=== PATIENT | female | born 1935 | race Caucasian/White ===

== ENCOUNTER 2018-11-02 19:15 | Inpatient (IN) ==
[2018-11-02 20:50] LABS: BASO# 0.05 X1000 (0.0-0.2); BASO% 0.8 % (0.0-0.8); HEMATOCRIT 43.7 % (37.0-47.0); HEMOGLOBIN 15.1 g/dL (12.0-16.0); LYMPH# 0.82 X1000 (1.2-3.4); MCH 30.6 PG (27-31); MCHC 34.6 g/dL (33-37); MCV 88.5 FL (81-99); MONO# 0.59 X1000 (0.11-0.59); MONO% 9.4 % (1.7-9.3); MPV 10.8 FL (7.4-10.4); NEUT# 4.84 X1000 (1.4-6.5); NEUT% 76.8 % (42.2-75.2); PLT 90 X1000 (130-400); RBC 4.94 XMIL (4.2-5.4); RDW 13.7 % (11.5-14.5)
[2018-11-02] MEDS: HUMULIN R SUBQ SCH (21:00)
[2018-11-02 21:09] LABS: ALB/GLOB RATIO 1.2; ALBUMIN 3.8 g/dL (3.5-5.0); CALCIUM 9.1 mg/dL (8.8-10.2); CREATININE 1.8 mg/dL (0.5-0.9); TOTAL BILIRUBIN 0.43 mg/dL (0.20-1.00); TOTAL PROTEIN 7.1 g/dL (6.3-8.3)
[2018-11-02] MEDS: NS 1,000 ML IV SCH (21:27)
[2018-11-02] MEDS: PEPCID IV SCH (21:29)
[2018-11-02] MEDS: LEVAQUIN 500 MG/D5W 500 MG/100 ML IVPB IV SCH (21:29)
[2018-11-02] MEDS ORDERED: NICODERM PATCH TD PRN (21:46)
--- NOTE | 2018-11-02 22:08 | HISTORY AND PHYSICAL ---
CHIEF COMPLAINT: Abdominal pain, nausea, and fever to 102. HPI: She is an 84-year-old white female who was evaluated in our office today with above symptoms. Flat/upright of the abdomen shows left lower lobe infiltrate, fever of 102. Admitted to the hospital for impending dehydration and left lower lobe pneumonia. As a result, admission was warranted directly. PAST MEDICAL HISTORY: Chronic anxiety, chronic kidney failure. Baseline creatinine 1.7. Type 2 diabetes, hearing loss, hyperlipidemia, hypertension, chronic back pain, osteoarthritis, chronic safe central perforation on the right side, chronic parotitis, history of acid reflux disease, PAD in both legs, restless legs syndrome. PAST SURGICAL HISTORY: Tonsillectomy, right radical mastectomy, cholecystectomy. MEDICINES: In my office are: Aspirin, Pletal 50 p.o. b.i.d., Klonopin 1 mg daily, Combivent 1 puff q.8, gabapentin 100 p.o. b.i.d., glipizide 10 p.o. b.i.d., hydroxyzine 10 mg b.i.d., Januvia 100 daily, lisinopril 20 mg b.i.d., Spiriva 1 inhalation daily, tramadol 50 three times daily. ALLERGIES: Codeine, guaifenesin, penicillin. SOCIAL HISTORY: She is . Four children. Lives in [place]. Smoking 1 pack a day. No alcohol. FAMILY HISTORY: Father at the age of 61. Mom of stroke at 80. VACCINATIONS: Last exam in my office 10/07/2017. Tetanus was given 10/07/2018. REVIEW OF SYSTEMS: HEENT: No headache. No vision problem. No earache. No sore throat. Neck: No neck pain. No goiter. No lymphadenopathy. Cardiopulmonary: No chest pain, shortness of breath, PND, orthopnea. GI: No nausea, cramping, no diarrhea. : No history of hesitancy, frequency, dysuria. No swelling of legs. No joint pain, chronic back pain. Neurologic: No focal symptoms or weakness. EXAMINATION: Temperature is 102 degrees in my office. Tachycardic. Blood pressure is stable. She is 5 feet 6, 230 pounds.HEENT: Atraumatic, normocephalic. Right tympanic membrane: History of perforation noted. Tongue is in the midline. Neck: Supple. No lymphadenopathy. Chest: Some crackles in the left side. Heart: Distant heart sounds. Abdomen: Belly is soft, obese, nontender. No signs of peritonitis. Extremities: No peripheral edema, cyanosis, no signs of gangrene. Neurological: Nonfocal. INVESTIGATIONS: CBC: White cell count 6.3, hematocrit 43, platelets 90,000. SMA 7. Sodium 136, potassium 5, chloride 103. BUN 24, creatinine 1.8, glucose 158. Slightly elevated LFTs. Amylase is 82. Flat plate of the abdomen: Left lower lobe infiltrate. Nonobstructive gas pattern. ASSESSMENT AND PLAN: 1. An 83-year-old white female with fever 102, nausea, with left lower lobe pneumonia. Admitted to the hospital basically with IV Levaquin. 2. IV fluids. 3. Zofran for nausea. 4. Deep vein thrombosis and gastrointestinal prophylaxis with IV Pepcid and Lovenox. 5. Reconcile home medications. 6. Type 2 diabetes, on sliding scale with insulin coverage. We will repeat the chest x-ray, blood cultures and urine cultures, and follow up on the pending labs. The patient has been on glipizide and Januvia. 7. Hyperlipidemia, on lovastatin. 8. Hypertension, on lisinopril 20 p.o. b.i.d. 9. Chronic back pain on tramadol and gabapentin. 10. Tobacco abuse on Nicotrol patches. 11. Chronic obstructive pulmonary disease on Spiriva and DuoNeb. 12. Chronic anxiety on Klonopin and hydroxyzine. 13. History of peripheral arterial disease in both legs. Ankle-brachial index 0.8 status post left superficial femoral angioplasty by Dr. Rehman and we will follow up. cc: Jay Jay Garcia MD
[2018-11-02] MEDS: KLONOPIN PO SCH (22:54)
[2018-11-03] MEDS: ZOFRAN IV PRN (04:20)
[2018-11-03] MEDS: HUMULIN R SUBQ SCH ×4 (06:56→21:48)
[2018-11-03] MEDS ORDERED: ROBAXIN PO PRN (08:16)
--- NOTE | 2018-11-03 08:34 | Diag Imaging Result Doc PS360 ---
CHEST-2 VIEWS - 11/03/2018 INDICATION: hypoxia COMPARISON: 06/09/2012 FINDINGS: There is a pulmonary mass visible on the lateral view in the lower lobe. There may also be some hazy infiltrate in the left lower lobe. No pneumothorax or pleural effusion. Heart size and pulmonary vascularity is top normal. IMPRESSION: 1. Suspicious left lower lobe pulmonary mass. Chest CT recommended. 2. Hazy infiltrate in the left lower lobe suggesting bronchial pneumonia. 3. This report was discussed with Dr. Garcia on 11/03/2018 at 8:30 AM and was readback. Electronically signed by Avi Rosales 11/03/2018 8:32 AM
[2018-11-03] MEDS: LYRICA PO SCH (10:33)
[2018-11-03] MEDS: ASPIRIN PO SCH (10:34)
[2018-11-03] MEDS: LOVENOX SUBQ SCH (10:34)
[2018-11-03] MEDS: THERA M PLUS PO SCH (10:35)
[2018-11-03] MEDS: PATIENT'S OWN MED PO SCH (10:42)
[2018-11-03] MEDS: PEPCID IV SCH ×2 (10:43→20:35)
[2018-11-03] MEDS: ZYRTEC-D 12HR PO SCH (10:44)
--- NOTE | 2018-11-03 12:00 | Diag Imaging Result Doc PS360 ---
CT THORAX W/O CONTRAST - 11/03/2018 INDICATION: lump in chest COMPARISON: Chest x-ray earlier today FINDINGS: There is a left lower lobe pulmonary mass central lobe. This is located between the anterior and lateral basilar segment bronchi. This measures 2.9 x 5.3 cm in AP and lateral dimensions. There is probably mild left hilar adenopathy. There is also a rounded indeterminate left tracheobronchial angle lymph node measuring 16 x 10 mm. The heart is normal in size and contour. There is significant scattered vascular disease of the aortic arch and coronary arteries. There is mild COPD. There is moderate interstitial pulmonary scarring scattered throughout the lungs diffusely. There are faint indeterminate infiltrates or areas of atelectasis of both lower lobes. There are moderate degenerative changes of the spine. No acute or suspicious bony lesion. IMPRESSION: 1. Left lower lobe pulmonary mass near the segmental bronchi. 2. Faint bibasilar infiltrates or atelectasis, nonspecific. 3. COPD with pulmonary fibrosis or scarring. This exam was performed using automated exposure control, adjustment of mA or kV according to patient size, and/or use of iterative reconstruction technique Electronically signed by Avi Rosales 11/03/2018 11:57 AM
--- NOTE | 2018-11-03 12:02 | Diag Imaging Result Doc PS360 ---
CT ABDOMEN W/O CONTRAST - 11/03/2018 INDICATION: rule out mass COMPARISON: None FINDINGS: In the lateral right lobe of the liver, there is a tiny 7 mm hypodense area. This is indeterminate. There is significant splenic megaly. The spleen measures 15.5 x 5.6 cm. There is advanced vascular disease with calcification of the aorta and its abdominal branches. No aneurysm. No mass or fluid collection in the abdomen. No radiodense renal stones. No hydronephrosis. No bowel obstruction or inflammation. There is severe diverticulosis of the sigmoid colon. There are moderate degenerative changes of the spine. No acute or suspicious bony lesion. IMPRESSION: 1. Splenomegaly. 2. Tiny nonspecific low-density nodule of the liver. 3. Severe diverticulosis coli. Severe vascular disease. This exam was performed using automated exposure control, adjustment of mA or kV according to patient size, and/or use of iterative reconstruction technique Electronically signed by Avi Rosales 11/03/2018 12:00 PM
[2018-11-03] MEDS: NS 1,000 ML IV SCH (12:07)
[2018-11-03] MEDS: ULTRAM PO PRN (17:58)
--- NOTE | 2018-11-03 18:58 | PROGRESS NOTE ---
DATE: 11/03/2018 SUBJECT: The patient is no fever. Chest x-ray was abnormal. On the lateral view it showed some left lower lobe mass with underlying infiltrate. EXAMINATION: Temperature is 98 degrees, pulse is 84, blood pressure stable, 5 feet 6, 230 pounds.HEENT: Within normal limits. Neck: Supple. No signs of consolidation. Heart: Sounds are regular. Belly: Soft, obese, nontender. No obvious deficits. INVESTIGATIONS: As discussed. Chest x-ray findings discussed with the left lower lobe mass. ASSESSMENT AND PLAN: 1. History of fall, sustained injury to the left side with a bruise. 2. Chronic kidney disease. IV fluids. 3. Advance the diet since nausea is improved. 4. Abnormal chest x-ray which is not these findings seen in February [address] of the chest without contrast, based on the CT further recommendations will be followed . 5. Patient is anxious to go home. Continue IV Levaquin and deep vein thrombosis prophylaxis with Lovenox, gastrointestinal prophylaxis with IV Pepcid. LEVEL OF DOCUMENTATION: 25 minutes. cc: Jay Jay Garcia MD
[2018-11-03] MEDS: LEVAQUIN 500 MG/D5W 500 MG/100 ML IVPB IV SCH (20:36)
[2018-11-03] MEDS: KLONOPIN PO SCH (20:36)
[2018-11-04] MEDS: NS 1,000 ML IV SCH ×3 (03:25→15:56)
[2018-11-04 05:01] LABS: ALLEN TEST YES; BE -3.7 mmoll (-3.0-3.0); BLOOD TYPE ARTERIAL; HCO3-(ACT) 21.9 mmoll (20.0-26.0); METHB 0.5 % (0.0-1.5); O2(CT) 21.2 mL/dL (15.0-23.0); O2HB 93.3 % (95.0-99.0); PCO2(98.6) 39 mmHg (35-45); PO2(98.6) 68 mmHg (60-100); SAMPLE BLOOD; THB 16.2 g/dL (11.5-17.4); pH(98.6) 7.35 (7.35-7.45)
[2018-11-04 05:02] LABS: MODALITY ROOM AIR
[2018-11-04] MEDS: HUMULIN R SUBQ SCH ×4 (07:21→20:46)
[2018-11-04 07:41] LABS: BASO# 0.04 X1000 (0.0-0.2); BASO% 1.1 % (0.0-0.8); EOS# 0.07 X1000 (0.0-0.7); EOS% 1.9 % (0.0-10.0); HEMATOCRIT 39.9 % (37.0-47.0); HEMOGLOBIN 13.5 g/dL (12.0-16.0); LYMPH# 1.09 X1000 (1.2-3.4); LYMPH% 28.9 % (20.5-51.1); MCH 30.2 PG (27-31); MCHC 33.8 g/dL (33-37); MCV 89.3 FL (81-99); MONO# 0.59 X1000 (0.11-0.59); MONO% 15.6 % (1.7-9.3); MPV 10.5 FL (7.4-10.4); NEUT# 1.98 X1000 (1.4-6.5); NEUT% 52.5 % (42.2-75.2); PLT 75 X1000 (130-400); RBC 4.47 XMIL (4.2-5.4); RDW 13.7 % (11.5-14.5); WBC 3.77 X1000 (4.8-10.8)
[2018-11-04 07:43] LABS: INR 1.06; PROTIME 14.6 Seconds (11.0-16.0)
[2018-11-04 07:49] LABS: POTASSIUM 4.6 mmol/L (3.5-5.1)
[2018-11-04 07:50] LABS: CALCIUM 8.3 mg/dL (8.8-10.2); CREATININE 1.5 mg/dL (0.5-0.9)
[2018-11-04] MEDS: PEPCID IV SCH ×2 (09:28→20:46)
[2018-11-04] MEDS: ASPIRIN PO SCH (09:28)
[2018-11-04] MEDS: ZYRTEC-D 12HR PO SCH (09:28)
[2018-11-04] MEDS: THERA M PLUS PO SCH (09:29)
[2018-11-04] MEDS: LYRICA PO SCH (09:29)
[2018-11-04] MEDS: LOVENOX SUBQ SCH (09:29)
[2018-11-04] MEDS: PATIENT'S OWN MED PO SCH (10:04)
--- NOTE | 2018-11-04 19:35 | PULMONOLOGY CONSULTATION ---
DATE: 11/04/2018 REQUESTING PHYSICIAN: Dr. Garcia. REASON FOR CONSULTATION: Lung mass. HISTORY OF PRESENT ILLNESS: Ms. Bonilla is an 83-year-old, white female with a greater than 60 pack-year history for tobacco (continues to smoke 1 pack per day) who reports she was doing well until Wednesday 11/01 when she had some mild chills. On the following day, she developed fevers of 102, nausea and vomiting and fell in her bathroom and was too weak to stand. The patient was evaluated in Dr. Garcia's office and was subsequently referred for admission to the hospital. She has been initiated on antibiotics and she has been afebrile since admission. Blood cultures are currently growing gram-positive rods in 1out of 2 blood culture bottles. Urine cultures were negative. She underwent a chest x-ray which revealed a new mass-like area in the left lower lobe. Dr. Garcia indicates she had a chest x-ray last February which was clear. The patient reports she is feeling significantly better and is regaining some of her strength. PAST MEDICAL HISTORY: 1. Peripheral vascular disease. 2. Chronic kidney disease. 3. Diabetes mellitus. 4. Dyslipidemia. 5. Osteoarthritis. 6. Chronic back pain. 7. History of gastroesophageal reflux disease. 8. Status post mastectomy. 9. Status post cholecystectomy. 10. Status post tonsillectomy. SOCIAL HISTORY: She has been smoking since the age of 15. No alcohol use. FAMILY HISTORY: Positive for lung cancer and strokes. REVIEW OF SYSTEMS: Notable for decreased hearing, sinus drainage, dry cough. The patient had nausea which has resolved. She has had no additional vomiting or weakness. PHYSICAL EXAMINATION: General: Reveals an obese white female resting comfortably and in no distress. Vital Signs: BP 134/69, heart rate 78, respiratory rate 16, oxygen saturation 96% on room air. HEENT: Pupils are equal and reactive. Oropharynx is clear. Neck: Supple. Chest: Reveals mild prolonged expiratory phase. Cardiac: S1, S2. Abdomen: Obese and soft. Extremities: Reveal trace edema. LABORATORIES: White blood count 3.77, hemoglobin 13.5, platelet count 75,000. Arterial blood gas reveals a pH of 7.35, pCO2 of 39, PO2 of 68. Sodium 138, potassium 4.6, chloride 107, bicarbonate 21, BUN 25, creatinine 1.5. CEA slightly elevated at 6.2. CT scan of the abdomen reveals 2.9 x 5.3 cm left lower lobe mass with nonspecific adenopathy. CT scan of the abdomen reveals severe vascular disease, splenomegaly, tiny nodule in the liver. IMPRESSION: An 83-year-old with extensive tobacco history, who presents with a febrile illness, generalized weakness, positive blood cultures and a negative urinalysis and a CT scan which reveals a new mass in the left lower lobe. By report, patient's chest x-ray was clear in February. This would be fairly rapid growth for a malignancy unless it was a small cell carcinoma. She has no other source noted for her infectious process. Although it is suspicious for cancer, current circumstances raise the possibility that this is an atypical presentation for a pneumonia. She does have blood cultures which are pending, but one culture is positive. At this juncture, I believe it would be reasonable to treat her for a pneumonia with a followup chest x-ray in 2 weeks. If the mass does not resolve or does not improve, then CT-guided biopsy could be performed at that time. A 2 week delay on the diagnosis of a malignancy would not be of major consequence. There is an airway which passes near the mass and a bronchoscopy might secure the diagnosis, but I think that this would only have a 50% chance of success. An alternative pathway would be to proceed directly with CT-guided biopsy given the suspicious appearance on CT scan. RECOMMENDATIONS: 1. Continue antibiotics. 2. Additional planning for lung mass as outlined above. 3. I will discuss the case with Dr. Garcia. cc: MD Jay Jay Quiroga MD
--- NOTE | 2018-11-04 20:14 | PROGRESS NOTE ---
DATE: 11/04/2018 SUBJECTIVE: The patient is anxious to go home. I spoke to Dr. Alves about the left lower lobe mass, easy access to get a tissue diagnosis. Blood cultures grew gram-positive rods, waiting for confirmation, and urine cultures are negative. The patient is not offering any complaints. OBJECTIVE: Vital Signs: Temperature is 97.8 degrees, pulse 78, blood pressure 134/69.HEENT: Within normal limits. Neck: Supple. Chest: Bilateral air entry. Heart: Sounds are regular. Abdomen: Belly is soft, nontender. INVESTIGATIONS: CBC: White cell count 3.7, hematocrit 39, platelets 75,000. ABG: pH is 7.35, pCO2 39, pO2 68 on room air. SMA7: Sodium 138, potassium 4.6, BUN 25, creatinine 1.5, glucose 115, CEA 6.2 ASSESSMENT AND PLAN: 1. Left lower lobe mass suspicious, waiting for tissue diagnosis. Spoke to Dr. Alves. 2. Chronic kidney disease, stable. 3. Diabetes, stable. 4. Gram-positive rods 1/2. Waiting for confirmation on culture and sensitivity. Continue on IV Levaquin and based on Dr. Alves consult, further recommendations will be followed. LEVEL OF DOCUMENTATION: 25 minutes. cc: Jay Jay Garcia MD MTDD
[2018-11-04] MEDS: KLONOPIN PO SCH (20:46)
[2018-11-04] MEDS: LEVAQUIN 500 MG/D5W 500 MG/100 ML IVPB IV SCH (20:47)
[2018-11-05] MEDS: NS 1,000 ML IV SCH (05:50)
[2018-11-05] MEDS: HUMULIN R SUBQ SCH ×4 (06:02→20:44)
--- NOTE | 2018-11-05 08:38 | Diag Imaging Result Doc PS360 ---
EXAM: CHEST-2 VIEWS 11/05/2018 HISTORY: lung mass TECHNIQUE: PA and lateral chest COMMENT: There is a somewhat rounded opacity present in the left lower lobe which was also present on 11/03/2018. There is some patchy ill-defined opacity in both lung bases. Overall the appearance the chest has not changed appreciably. IMPRESSION: Left lower lobe nodule/mass. Bibasilar atelectasis versus fibrosis. Electronically signed by Anselmo Sullivan 11/05/2018 8:35 AM
[2018-11-05] MEDS: ASPIRIN PO SCH (09:14)
[2018-11-05] MEDS: THERA M PLUS PO SCH (09:15)
[2018-11-05] MEDS: ZYRTEC-D 12HR PO SCH (09:15)
[2018-11-05] MEDS: PEPCID IV SCH ×3 (09:22→20:43)
[2018-11-05] MEDS: PATIENT'S OWN MED PO SCH (09:22)
[2018-11-05] MEDS: LYRICA PO SCH (09:23)
--- NOTE | 2018-11-05 10:20 | Diag Imaging Result Doc PS360 ---
CHEST-2 VIEWS - 11/05/2018 10:21 AM INDICATION: POST LEFT LUNG BIOPSY COMPARISON: 8:27 AM FINDINGS: There is probably a small left apical pneumothorax, around 19 mm. IMPRESSION: Small left apical pneumothorax of about 10-15%. Electronically signed by Avi Rosales 11/05/2018 10:18 AM
--- NOTE | 2018-11-05 14:07 | Diag Imaging Result Doc PS360 ---
CHEST-2 VIEWS - 11/05/2018 INDICATION: post Lung Biopsy COMPARISON: 10:21 AM FINDINGS: There is no significant change in the small left apical pneumothorax. This measures about 1.9 cm, less than 20%. IMPRESSION: Small left apical pneumothorax. No change from prior. Electronically signed by Avi Rosales 11/05/2018 2:05 PM
--- NOTE | 2018-11-05 14:09 | Diag Imaging Result Doc PS360 ---
CT GUIDED BIOPSY LUNG - 11/05/2018 INDICATION: left lower lobe TECHNIQUE: The risks and benefits of the procedure were discussed with the patient. All questions were answered. Written and verbal informed consent was obtained. Overlying skin was prepped and draped in sterile fashion. Anesthesia was achieved with injection of 10 cc of 1% lidocaine. COMPARISON: CT from 11/04/2018 FINDINGS: The left lower lobe pulmonary mass was biopsied with the 10/15 cm 19/20 gauge Temno biopsy set. Eight passes were obtained. The needles were withdrawn intact. The patient coughed quite a bit and there was a small pneumothorax which was stable during postprocedural monitoring. IMPRESSION: Successful CT-guided left pulmonary mass biopsy. Small, stable left pneumothorax. Electronically signed by Avi Rosales 11/05/2018 2:06 PM
--- NOTE | 2018-11-05 20:31 | PULMONOLOGY PROGRESS NOTE ---
DATE: 11/05/2018 SUBJECTIVE: The patient was seen early this morning without complaints. She did have a CT-guided biopsy, which she tolerated well. She has mild/small pneumothorax. She is without complaints. OBJECTIVE: Vital Signs: The patient has been afebrile for the last 24 hours. Blood pressure 135/76, heart rate 76, respiratory rate 16, oxygen saturation 91%. HEENT: Pupils are equal and reactive. Oropharynx appears clear. Neck: Supple. Chest: Band-Aid over CT-guided biopsy site. Breath sounds appear to be clear and symmetric. Cardiac: S1, S2. Abdomen: Soft and obese. Extremities: Without edema. LABORATORIES: Chest x-ray following biopsy reveals a small pneumothorax. Pneumothorax is stable at 2:00 this afternoon. Microbiology reveals diphtheroids in the blood. IMPRESSION: 83-year-old with: 1. Lung mass. 2. Status post CT-guided biopsy. 3. Small pneumothorax. RECOMMENDATIONS: 1. Await pathology report. This should be available tomorrow. 2. Anticipate the need for outpatient pulmonary function studies and PET scan. 3. I will be out of town for the next week. This was discussed with the patient. cc: MD Jay Jay Quiroga MD
[2018-11-05] MEDS: KLONOPIN PO SCH (20:43)
[2018-11-05] MEDS: LEVAQUIN 500 MG/D5W 500 MG/100 ML IVPB IV SCH (20:44)
--- NOTE | 2018-11-05 22:06 | PROGRESS NOTE ---
DATE: 11/05/2018 SUBJECT: Appreciate Dr. Alves's consult. I did review the x-rays again with Dr. Sullivan. PHYSICAL EXAMINATION: On exam vitals are stable and chest is clear. Heart sounds are regular. LABORATORY DATA: None reported. ASSESSMENT AND PLAN: 1. Discontinue IV fluids. 2. Waiting for CT-guided biopsy. 3. Chronic kidney disease stable. 4. Tobacco abuse on Nicotrol patch. 5. Continue present treatment. 6. We will follow up. LEVEL OF DOCUMENTATION: 35 minutes. cc: Jay Jay Garcia MD
[2018-11-06] MEDS: HUMULIN R SUBQ SCH ×4 (06:09→20:05)
--- NOTE | 2018-11-06 06:35 | Diag Imaging Result Doc PS360 ---
EXAM: CHEST-PORTABLE HISTORY: abnormal exam TECHNIQUE: Chest single view COMPARISON: 11/05/2018 FINDINGS: Poor inspiratory effort. There is a small left apical pneumothorax. This is smaller than on the prior study. No change in the left basilar density shown to be a mass on CT. Heart is mildly prominent. No pleural effusions identified. IMPRESSION: Tiny left apical pneumothorax. Electronically signed by Marin Pavon 11/06/2018 6:33 AM
[2018-11-06] MEDS: ASPIRIN PO SCH (08:16)
[2018-11-06] MEDS: THERA M PLUS PO SCH (08:16)
[2018-11-06] MEDS: PEPCID IV SCH ×2 (08:16→20:05)
[2018-11-06] MEDS: LYRICA PO SCH (08:16)
[2018-11-06] MEDS: ZYRTEC-D 12HR PO SCH (08:17)
[2018-11-06] MEDS: LOVENOX SUBQ SCH (11:58)
[2018-11-06] MEDS: PATIENT'S OWN MED PO SCH (18:17)
--- NOTE | 2018-11-06 19:55 | PROGRESS NOTE ---
DATE: 11/06/2018 SUBJECTIVE: The patient is anxious to know the biopsy report. No complaints and blood cultures grew diphtheroids. Only 1 out of 2 urine was negative. EXAMINATION: Vital Signs: Temperature is 97, pulse 90, blood pressure is stable. Chest: Bilateral air entry. Heart: Sounds are regular. Abdomen: Belly is soft, nontender. No neurological deficits. ASSESSMENT AND PLAN: 1. Left midlung mass. 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 Further stains are pending. We will get the full report on Friday. 2. In the meantime, diphtheroids contamination. Continue IV Levaquin. 3. Family is anxious to know the biopsy. Once the biopsy report probably needs MRI of the brain as well as the staging. Continue present treatment. LEVEL OF DOCUMENTATION: 25 minutes. cc: Jay Jay Garcia MD
[2018-11-06] MEDS: KLONOPIN PO SCH (20:04)
[2018-11-06] MEDS: LEVAQUIN 500 MG/D5W 500 MG/100 ML IVPB IV SCH (20:05)
[2018-11-07] MEDS: HUMULIN R SUBQ SCH ×5 (06:07→21:07)
[2018-11-07] MEDS: ULTRAM PO PRN (07:11)
--- NOTE | 2018-11-07 07:18 | Diag Imaging Result Doc PS360 ---
EXAM: CHEST-1 VIEW HISTORY: SOB TECHNIQUE: Chest single view COMPARISON: 11/06/2018 FINDINGS: Poor inspiratory effort. The heart remains mildly prominent. There is vascular distention. Left basilar mass by CT. Tiny left apical pneumothorax remains. No pleural effusions identified. IMPRESSION: Stable chest Electronically signed by Marin Pavon 11/07/2018 7:15 AM
[2018-11-07] MEDS: PEPCID IV SCH ×2 (08:33→21:05)
[2018-11-07] MEDS: LYRICA PO SCH (08:33)
[2018-11-07] MEDS: THERA M PLUS PO SCH (08:33)
[2018-11-07] MEDS: ASPIRIN PO SCH (08:33)
[2018-11-07] MEDS: ZYRTEC-D 12HR PO SCH (08:33)
[2018-11-07] MEDS: LOVENOX SUBQ SCH (08:34)
[2018-11-07] MEDS: PATIENT'S OWN MED PO SCH (08:35)
--- NOTE | 2018-11-07 15:35 | PROGRESS NOTE ---
DATE: 11/07/2018 Patient is anxious to go home and followup chest x-ray stable apical pneumothorax. No complaints. No headache. EXAM: Temperature is 97.8 degrees, blood pressure 130/74, 98% on room air.HEENT: Within normal limits. Neck: Supple. Chest: Bilateral air entry. Heart: Sounds are regular. Belly: Is soft, nontender. LAB: CEA level 6.2. ASSESSMENT AND PLAN: 1. Diphtheroids most likely contaminated. Continue IV antibiotics. 2. Pulmonary biopsy reported suspicious cells, waiting for full report. Will schedule for MRI of the brain while she is in the hospital in the morning. 3. Chronic kidney disease stable. 4. Deep vein thrombosis prophylaxis with Lovenox. Gastrointestinal prophylaxis with IV Pepcid. 5. Diabetes on sliding scale with insulin coverage and continue IV antibiotics and then based on the pathology report further recommendations will be followed. Patient family is anxious to know the diagnosis. While she is here it is much easier to do the further workup. LEVEL OF DOCUMENTATION: 25 minutes. cc: Jay Jay Garcia MD
[2018-11-07] MEDS: LEVAQUIN 500 MG/D5W 500 MG/100 ML IVPB IV SCH (21:04)
[2018-11-07] MEDS: KLONOPIN PO SCH (21:05)
[2018-11-08] MEDS: HUMULIN R SUBQ SCH ×4 (06:15→21:28)
--- NOTE | 2018-11-08 07:52 | Diag Imaging Result Doc PS360 ---
EXAM: CHEST-1 VIEW - 11/08/2018 HISTORY: SOB TECHNIQUE: Portable chest COMPARISON: 11/07/2018 FINDINGS: Heart size appears normal. Inspiration is mildly shallow. The left basilar opacity is less prominent compared to prior, but this could relate to differences in patient rotation. The remainder lungs appear grossly clear of acute changes. There is no pleural effusion identified. The prior small left pneumothorax is no longer identified. IMPRESSION: Some decrease in left basilar opacity versus differences in positioning. Apparent interval resolution of prior small left pneumothorax. Electronically signed by Shon Dial 11/08/2018 7:50 AM
[2018-11-08] MEDS: ASPIRIN PO SCH (08:57)
[2018-11-08] MEDS: PEPCID IV SCH ×2 (08:58→20:03)
[2018-11-08] MEDS: ULTRAM PO PRN (08:58)
[2018-11-08] MEDS: THERA M PLUS PO SCH (08:58)
[2018-11-08] MEDS: LYRICA PO SCH (08:59)
[2018-11-08] MEDS: PATIENT'S OWN MED PO SCH (08:59)
[2018-11-08] MEDS: LOVENOX SUBQ SCH (08:59)
[2018-11-08] MEDS: ZYRTEC-D 12HR PO SCH (09:11)
--- NOTE | 2018-11-08 17:04 | PROGRESS NOTE ---
DATE: 11/08/2018 SUBJECTIVE: The patient is anxious to go home and waiting for biopsy report and complaints of constipation. OBJECTIVE: On exam, temperature is 97 degrees, pulse 96, blood pressure is stable.HEENT: Within normal limits. Hearing is noted. Chest: Bilateral air entry. Heart sounds are regular. No neurological deficits. DIAGNOSTIC STUDIES: CEA is slightly elevated. ASSESSMENT AND PLAN: 1. Left lung mass waiting for full pathology report. It is reported malignancy in need of staging and port. Based on that further recommendations will be followed. 2. Diabetes. 3. Chronic kidney disease. 4. Hypertension, stable. 5. We will schedule for an MRI of the brain in the morning. 6. Constipation. MiraLAX was given LEVEL OF DOCUMENTATION: 25 minutes. cc: Jay Jay Garcia MD MTDD
[2018-11-08] MEDS: LEVAQUIN 500 MG/D5W 500 MG/100 ML IVPB IV SCH (20:03)
[2018-11-08] MEDS: KLONOPIN PO SCH (20:03)
[2018-11-09] MEDS: HUMULIN R SUBQ SCH ×4 (06:02→21:10)
--- NOTE | 2018-11-09 06:39 | Diag Imaging Result Doc PS360 ---
EXAM: CHEST-1 VIEW HISTORY: SOB TECHNIQUE: Chest single view COMPARISON: 11/08/2018 FINDINGS: Poor inspiratory effort. The heart is borderline mildly prominent. Mild increased interstitial markings throughout both lungs. Left basilar mass is unchanged. No pneumothorax identified. No pleural effusions are seen. IMPRESSION: Stable chest. Electronically signed by Marin Pavon 11/09/2018 6:36 AM
[2018-11-09] MEDS: PEPCID IV SCH ×2 (08:55→21:09)
[2018-11-09] MEDS: ASPIRIN PO SCH (08:56)
[2018-11-09] MEDS: LYRICA PO SCH (08:56)
[2018-11-09] MEDS: LOVENOX SUBQ SCH (08:56)
[2018-11-09] MEDS: ZYRTEC-D 12HR PO SCH (08:56)
[2018-11-09] MEDS: THERA M PLUS PO SCH (08:56)
[2018-11-09] MEDS: MIRALAX PO SCH (08:57)
[2018-11-09] MEDS: SODIUM CHLORIDE 0.9% INJ SCH (08:57)
[2018-11-09] MEDS: PATIENT'S OWN MED PO SCH (09:03)
[2018-11-09] MEDS: ULTRAM PO PRN (17:55)
[2018-11-09] MEDS: LEVAQUIN 500 MG/D5W 500 MG/100 ML IVPB IV SCH (21:09)
[2018-11-09] MEDS: KLONOPIN PO SCH (21:09)
[2018-11-10] MEDS: HUMULIN R SUBQ SCH ×4 (06:20→20:41)
[2018-11-10] MEDS ORDERED: ATIVAN IV PRN (08:00)
[2018-11-10] MEDS: LYRICA PO SCH (08:01)
[2018-11-10] MEDS: ZYRTEC-D 12HR PO SCH (08:01)
[2018-11-10] MEDS: LOVENOX SUBQ SCH (08:01)
[2018-11-10] MEDS: PEPCID IV SCH ×2 (08:01→20:37)
[2018-11-10] MEDS: THERA M PLUS PO SCH (08:01)
[2018-11-10] MEDS: MIRALAX PO SCH (08:01)
[2018-11-10] MEDS: ASPIRIN PO SCH (08:01)
[2018-11-10] MEDS: SODIUM CHLORIDE 0.9% INJ SCH ×2 (08:02→20:37)
[2018-11-10] MEDS: PATIENT'S OWN MED PO SCH (08:02)
--- NOTE | 2018-11-10 11:56 | Diag Imaging Result Doc PS360 ---
CT HEAD W/O CONTRAST - 11/10/2018 INDICATION: possible mets COMPARISON: 07/01/2018 FINDINGS: Intravenous contrast could not be administered due to severe renal impairment. The ventricles and sulci are normal in size and contour. No intracranial mass or hemorrhage. There is some stable moderate mainly left periventricular white matter gliosis compatible with chronic microvascular disease. This also affects the midbrain. The skull is intact. The sinuses are clear. IMPRESSION: No acute disease or change from prior. This exam was performed using automated exposure control, adjustment of mA or kV according to patient size, and/or use of iterative reconstruction technique Electronically signed by Avi Rosales 11/10/2018 11:54 AM
[2018-11-10] MEDS: KLONOPIN PO SCH (20:38)
[2018-11-10] MEDS: LEVAQUIN 250 MG/D5W 250 MG/50 ML IVPB IV SCH (20:40)
--- NOTE | 2018-11-11 05:57 | GENERAL SURGERY CONSULTATION ---
DATE: 11/10/2018 REQUESTING PHYSICIAN: Dr. Garcia. REASON FOR CONSULTATION: Port-A-Cath placement. HISTORY OF PRESENT ILLNESS: An 83-year-old female with suspected lung cancer on the left side, who was admitted initially on 11/02/2018 with abdominal pain and nausea, vomiting. In the process of working her up, she also had a chest x-ray that showed a mass at the segmental bronchi. 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 Per discussion with Dr. Garcia, it seems like she needs a port. The patient has been hospital since 11/08/2018. PAST MEDICAL HISTORY: 1. Chronic anxiety. 2. Chronic kidney failure. 3. Type 2 diabetes. 4. Hearing loss. 5. Hyperlipidemia. 6. Hypertension. 7. Chronic back pain. 8. Osteoarthritis. 9. Chronic parotiditis. 10.History of gastroesophageal reflux disease. 11.Peripheral vascular disease. 12.Restless leg syndrome. PAST SURGICAL HISTORY: 1. Tonsillectomy. 2. Right radical mastectomy. 3. Cholecystectomy. HOME MEDICATIONS: Reviewed. ALLERGIES: Codeine, penicillins. SOCIAL HISTORY: Positive for stroke. REVIEW OF SYSTEMS: A full 10-point review of systems obtained, negative except as specified in the HPI. PHYSICAL EXAMINATION: Vital signs: Patient is currently afebrile, vital signs are stable. General: No acute distress, resting comfortably. HEENT: Normocephalic, atraumatic. Pupils are equal, round, reactive to light. Mucous membranes moist. Oropharynx benign. Neck: Supple. Trachea is midline. Cardiovascular: Regular rate and rhythm. Lungs: Grossly clear. Abdomen: Soft, nontender, nondistended. Extremities: Moves all extremities. Neurologic: Grossly intact. Skin: No signs of jaundice. Vascular: All extremities perfused. LABORATORY DATA: Reviewed. ASSESSMENT AND PLAN: An 83-year-old female with left-sided lung mass. Left-sided lung mass. At this time, plan on placing a port. The earliest I can do it is . She could even be discharged and come back to the hospital and get it done as an outpatient. We will put a consent in while she is here. If she stays here, can do it as an inpatient. Discussed with her the risks, benefits, and alternatives of the procedure. Risks including, but not limited to, bleeding, infection, risk of pneumothorax, risk of failure of the port discussed. She voices understanding and wishes to proceed with the procedure. I appreciate the consult. cc: MD Jay Jay Rodriguez MD
[2018-11-11] MEDS: HUMULIN R SUBQ SCH ×4 (06:35→21:13)
[2018-11-11] MEDS ORDERED: NORCO-10 PO ONE (08:27)
[2018-11-11] MEDS: PATIENT'S OWN MED PO SCH (08:48)
[2018-11-11] MEDS: SODIUM CHLORIDE 0.9% INJ SCH (09:07)
[2018-11-11] MEDS: LYRICA PO SCH (09:07)
[2018-11-11] MEDS: THERA M PLUS PO SCH (09:07)
[2018-11-11] MEDS: LOVENOX SUBQ SCH ×2 (09:07→10:28)
[2018-11-11] MEDS: MIRALAX PO SCH (09:07)
[2018-11-11] MEDS: ZYRTEC-D 12HR PO SCH (09:07)
[2018-11-11] MEDS: ASPIRIN PO SCH (09:07)
[2018-11-11] MEDS: PEPCID IV SCH ×2 (09:07→21:13)
[2018-11-11] MEDS: ULTRACET 37.5MG/325MG PO PRN ×2 (09:10→15:15)
--- NOTE | 2018-11-11 12:56 | PROGRESS NOTE ---
DATE: 11/10/2018 SUBJECTIVE: 1. The patient is unable to do the MRI due to back pain. 2. Appreciated Dr. Pineda consult and the patient is anxious to go home, waiting for port. PHYSICAL EXAMINATION: Vital signs: Temperature is 97 degrees. Vitals are stable. HEENT: Within normal limits. Neck: Supple. Chest: Clear. Heart: Sounds are regular. ASSESSMENT AND PLAN: 1. Small cell lung cancer. Waiting for staging. Follow up with recommendations with Dr. Pineda. 2. Waiting for the port. Unable to do the MRI; the brain CT was negative. Continue present treatment and we will change the antibiotics to 250 IV once a day and will follow up. LEVEL OF DOCUMENTATION: 25 minutes. cc: Jay Jay Garcia MD
--- NOTE | 2018-11-11 16:39 | PROGRESS NOTE ---
DATE: 11/09/2018 SUBJECTIVE: The patient failed to undergo MRI of the brain due to claustrophobia. We will attempt again tomorrow with Ativan half an hour before. Unfortunately, biopsy report came back small cell lung cancer. Waiting for staging. The patient was very emotional. EXAMINATION: Temperature is 97 degrees. Vitals are stable. HEENT: Examination within normal limits. Neck: Supple. Chest: Bilateral air entry. Heart sounds are regular. Belly is soft, nontender. No neurological deficits. LABORATORY DATA: The CT biopsy, small cell lung cancer. ASSESSMENT AND PLAN: 1. Small cell lung cancer. Waiting for staging. Limited versus extensive. MRI of the brain tomorrow. 2. Port placement for future chemotherapy. Dr. Narvaez consulted. 3. Dr. Pineda consult. 4. Other problems. Diphtheroids, gram-positive corbin stable, chronic kidney disease and diabetes are stable. Discussed the plan of care with the family and followup. LEVEL OF DOCUMENTATION: 25 minutes. cc: Jay Jay Garcia MD
[2018-11-11] MEDS: LEVAQUIN 250 MG/D5W 250 MG/50 ML IVPB IV SCH (21:13)
[2018-11-11] MEDS: KLONOPIN PO SCH (21:14)
--- NOTE | 2018-11-11 21:55 | PROGRESS NOTE ---
DATE: 11/11/2018 SUBJECTIVE: An 83-year-old, white female, who has been diagnosed with small cell lung cancer. Staging appears to be a limited stage. So far no secondary metastatic disease noted. Unable to do MRI. Complains of back pain and waiting for port placement. Dr. Pineda is going to set up for PET scan. EXAMINATION: Vital Signs: Temperature is 98, pulse is 100, blood pressure is stable. HEENT: Within normal limits. Chest: Clear. Heart: Sounds are regular. Abdomen: Belly is soft, nontender. Good bowel sounds. No neurological deficits. ASSESSMENT AND PLAN: 1. Small cell lung cancer. Waiting for staging waiting for port. 2. Chronic back pain. Ultracet was given. 3. Chronic kidney disease. 4. Diabetes are stable. After the port placement, will be discharged and follow up outpatient with Dr. Pineda for maintenance care. LEVEL OF DOCUMENTATION: 15 minutes. cc: Jay Jay Garcia MD
[2018-11-12] MEDS: HUMULIN R SUBQ SCH ×4 (06:12→20:47)
[2018-11-12] MEDS: ULTRACET 37.5MG/325MG PO PRN ×2 (06:24→20:44)
[2018-11-12 07:27] LABS: HEMOGLOBIN 15.2 g/dL (12.0-16.0); PLT 119 X1000 (130-400); RDW 13.6 % (11.5-14.5)
[2018-11-12 07:28] LABS: BASO# 0.01 X1000 (0.0-0.2); BASO% 0.2 % (0.0-0.8); NEUT# 3.62 X1000 (1.4-6.5)
[2018-11-12 07:37] LABS: EOS# 0.19 X1000 (0.0-0.7); EOS% 3.3 % (0.0-10.0); HEMATOCRIT 43.7 % (37.0-47.0); LYMPH# 1.01 X1000 (1.2-3.4); LYMPH% 17.8 % (20.5-51.1); MCH 30.1 PG (27-31); MCHC 34.8 g/dL (33-37); MCV 86.5 FL (81-99); MONO# 0.85 X1000 (0.11-0.59); MPV 10.1 FL (7.4-10.4); NEUT% 63.7 % (42.2-75.2); RBC 5.05 XMIL (4.2-5.4); WBC 5.68 X1000 (4.8-10.8)
[2018-11-12 07:51] LABS: CALCIUM 9.6 mg/dL (8.8-10.2); CREATININE 1.6 mg/dL (0.5-0.9); POTASSIUM 4.8 mmol/L (3.5-5.1)
--- NOTE | 2018-11-12 08:09 | HEMO/ONC PROGRESS NOTE ---
DATE: 11/11/2018 SUBJECTIVE: Ms Bonilla is up and about, straightening her room this morning. She states that she feels okay. She is waiting on Port-A-Cath placement tomorrow and then should be subsequently discharged. She does have a cough. States that her back hurts. She is very hard of hearing. OBJECTIVE: Vital Signs: Temperature 99 degrees, pulse rate 101, respiratory rate 20, blood pressure 135/70, O2 saturation 99% on room air. She is in 8/10 back pain. General: Elderly female. She is obese. She is extremely hard of hearing. Respiratory: Lungs are clear to auscultation. Normal respiratory effort. Cardiovascular: S1, S2 appreciated. Gastrointestinal: Abdomen is soft, nontender, nondistended. It is protuberant. Neurological: Extremely hard of hearing. Moves all extremities. LABORATORY: No new labs today. ASSESSMENT: 1. Small cell lung cancer of the left lung. 2. Diabetes. 3. Chronic kidney disease. 4. Hypertension. PLAN: We await the patient to have a Port-A-Cath placed for possible treatment. We will follow up with the patient on an outpatient basis to treat her cancer as necessary. Dictated by JUANA Hebert for Francois Pineda MD Patient seen and examined. As above. Discussed with Dr. Garcia. Plan for PET scan outpatient. No other recomendations. Will sign off. Please call with questions. cc: MD Jay Jay Reyes MD [facility]
--- NOTE | 2018-11-12 10:53 | HEMO/ONC CONSULTATION ---
DATE: 11/10/2018 CHIEF COMPLAINT: We are being consulted for Ms. Bonilla regarding new diagnosis of small cell lung cancer. HISTORY OF PRESENT ILLNESS: The patient came in on 11/02/2018 after visiting her PCP for abdominal pain, nausea and 102 fever. Chest x-ray shows left lower pneumonia. Pulmonary was consulted regarding this mass seen in her left lower lobe. Apparently she also had a chest x-ray last February which was clear. Patient had a CT guided biopsy which showed poorly differentiated malignancy, small cell neuroendocrine carcinoma. Since patient's admission she has felt better, remained afebrile and states she is ready to go home. PAST MEDICAL HISTORY: 1. Chronic anxiety. 2. Chronic kidney failure. 3. Type 2 diabetes. 4. Severe hearing loss. 5. Hyperlipidemia. 6. Hypertension. 7. Chronic back pain. 8. Osteoarthritis. 9. Chronic pruritus. 10.History of acid reflux disease. 11.Peripheral artery disease in both legs. 12.Restless leg syndrome. PAST SURGICAL HISTORY: 1. Tonsillectomy. 2. Right radical mastectomy. 3. Cholecystectomy. HOME MEDICATIONS: 1. Aspirin. 2. Pletal. 3. Klonopin. 4. Combivent. 5. Gabapentin. 6. Glipizide. 7. Hydroxyzine. 8. Lisinopril. 9. Spiriva. 10.Tramadol. ALLERGIES: CODEINE, PENICILLIN G, GUAIFENESIN. SOCIAL HISTORY: She smokes one pack a day. She states that she quit smoking when she came into the hospital. Denies alcohol or illicit drugs. REVIEW OF SYSTEMS: Positive for chronic cough, negative other than history of present illness. VITAL SIGNS: Temperature 97.5 degrees, pulse rate 93, respiratory rate 16, blood pressure 114/45, O2 saturation 97% on room air, 0 out of 10 pain. PHYSICAL EXAMINATION: GENERAL: Obese female that is extremely hard of hearing. RESPIRATORY: Mild rhonchi heart on inspiration. CARDIAC: S1-S2 normal. ABDOMEN: Soft, nontender, nondistended. Protuberant. LABORATORY DATA: Creatinine 1.9. Previous labs drawn over a week ago CEA 6.2. RADIOLOGY: Head CT from this morning shows no acute disease. Yesterday's chest x-ray shows poor inspiratory effort, mild increased interstitial markings throughout both lungs, left basilar mass that is unchanged. ASSESSMENT: 1. Left lung mass consistent with small cell lung cancer. 2. Diabetes. 4. Chronic kidney disease. PLAN: 1. Patient states she is ready to go home. 2. Surgeon will place a port on for the patient. 3. We will see the patient in the clinic and make a plan for therapy at that time. Dictated by JUANA Hebert for Francois Pineda MD Patient seen and examined. As above. Discussed with Dr. Garcia. Patient diagnosed to have small cell lung cancer on CT of the chest. CT of the head without metastatic disease. Plan for Port-A-Cath placement. Outpatient we will plan for PET scan. Patient is interested in treatment. Follow-up outpatient for further management. Francois Pineda M.D. cc: MD Jay Jay Reyes MD [facility]
[2018-11-12] MEDS: ZOFRAN IV PRN (11:56)
[2018-11-12] MEDS ORDERED: MARCAINE 0.25% PF/EPI 1:200,000 ONE (12:15)
[2018-11-12] MEDS ORDERED: XYLOCAINE 1% ONE (12:15)
[2018-11-12] MEDS ORDERED: NS 250 ML ONE (12:16)
[2018-11-12] MEDS ORDERED: DIPRIVAN 1% ONE (12:22)
--- NOTE | 2018-11-12 12:38 | GENERAL SURGERY PROGRESS NOTE ---
DATE: 11/12/2018 SUBJECTIVE: Patient seems to be doing well. She is up mobilizing. OBJECTIVE: Vital Signs: The patient is currently afebrile. Her vital signs are stable. General Examination: No acute distress. Cardiovascular: Regular rate and rhythm. Lungs: Grossly clear. Abdomen: Soft, nontender, nondistended. Extremities: Moves all extremities. Neurologic: Grossly intact. Skin: No signs of jaundice. Vascular: All extremities perfused. HEENT: Normocephalic, atraumatic. Pupils equal, round, reactive to light. Mucous membranes moist. Oropharynx benign. Neck: Supple. Laboratory: Reviewed. ASSESSMENT/PLAN: An 83-year-old female with a left-sided lung mass. Left-sided lung mass. At this time, we will plan on placement of a Port-A-Cath. We have discussed with her the risks, benefits, and alternatives, and documented in the chart. She is aware. We will do it today. She is nothing per oral. Her consent has been ordered for. She is on scheduled antibiotics. cc: MD Jay Jay Rodriguez MD
[2018-11-12] MEDS ORDERED: NEO-SYNEPHRINE ONE (13:29)
[2018-11-12] MEDS ORDERED: XYLOCAINE-MPF 2% ONE (13:29)
--- NOTE | 2018-11-12 14:13 | Diag Imaging Result Doc PS360 ---
EXAM: CHEST-PORTABLE HISTORY: port placement TECHNIQUE: Chest single view COMPARISON: 11/09/2018 FINDINGS: There is a right jugular portacatheter on the current exam. The tip overlies the right atrium. No pneumothorax. Poor inspiratory effort. Heart is borderline mildly prominent. Mild pulmonary edema versus fibrosis. No consolidation. No pleural effusions identified. IMPRESSION: No postprocedural pneumothorax. Electronically signed by Marin Pavon 11/12/2018 2:11 PM
[2018-11-12] MEDS: PEPCID IV SCH ×2 (16:29→20:44)
[2018-11-12] MEDS: THERA M PLUS PO SCH (16:31)
[2018-11-12] MEDS: ASPIRIN PO SCH (16:31)
[2018-11-12] MEDS: ZYRTEC-D 12HR PO SCH (16:31)
[2018-11-12] MEDS: LYRICA PO SCH (16:32)
[2018-11-12] MEDS: MIRALAX PO SCH (16:32)
[2018-11-12] MEDS: PATIENT'S OWN MED PO SCH (16:32)
[2018-11-12] MEDS: LOVENOX SUBQ SCH (16:32)
--- NOTE | 2018-11-12 20:15 | OPERATIVE NOTE ---
PROCEDURE DATE: 11/12/2018 PREOPERATIVE DIAGNOSIS: Left hilar mass. POSTOPERATIVE DIAGNOSIS: Left hilar mass. PROCEDURE: Ultrasound and fluoroscopic guided placement of right internal jugular vein port. SURGEON: Guero Narvaez MD. PLEATING SUPERVISOR: None. ANESTHESIA: General endotracheal. INTRAOPERATIVE FINDINGS: Ultrasound showed good caliber right internal jugular vein. Fluoroscopy showed the catheter in good position at completion of the case. COMPLICATIONS: None at the time of this dictation. ESTIMATED BLOOD LOSS: 5 mL. BRIEF HISTORY: 83-year-old female who had left-sided lung mass. They wanted access for chemotherapy. The risks, benefits, and alternatives were discussed with the patient. All questions answered. DESCRIPTION OF PROCEDURE: After informed consent was obtained, the patient was brought to the operative theatre, transferred to the operating table, and placed in supine position. General endotracheal anesthesia was then performed without complication. A formal time-out was then performed, confirming patient, date, procedure. All were in agreement. At that time, attention was turned to the right neck. It was prepped and draped in sterile fashion. After the time-out, we used the ultrasound to identify the right internal jugular vein. I was able to, under local anesthetic, cannulate the right internal jugular vein using the ultrasound, passed a wire seen under fluoro going into the superior vena cava. We then created a pocket on the right chest wall, placed the port, and then tunneled it under the skin, then exchanged over the wire in a typical Seldinger technique to place the tip of the catheter going in the superior vena cava seen under fluoro. There were no kinks or bends. The port aspirated and flushed easily. We closed the skin with a running Monocryl. The patient tolerated the procedure well and was transferred back to the recovery room in stable condition. A chest x-ray is pending. cc: MD Jay Jay Rodriguez MD
[2018-11-12] MEDS: KLONOPIN PO SCH (20:44)
[2018-11-12] MEDS: LEVAQUIN 250 MG/D5W 250 MG/50 ML IVPB IV SCH (20:47)
--- NOTE | 2018-11-12 21:53 | PROGRESS NOTE ---
DATE: 11/12/2018 SUBJECTIVE: The patient is in a lot of pain, not able to take the hydrocodone. Dr. Narvaez is going to do the port on the right side. She has been scheduled for PET scan tomorrow at 11 o'clock. EXAMINATION: Vital Signs: Temp is 98, pulse 99, blood pressure is stable. HEENT: Within normal limits. Neck: Supple. Chest: Bilateral air entry. Heart: Heart sounds are regular. Neurologic: No obvious neurological deficits. INVESTIGATIONS: CBC: White cell count 5.6, hematocrit 43, platelets 190,000. Sodium 136, potassium 4.5, BUN 32, creatinine 1.6, glucose 205. ASSESSMENT: 1. Left lung lower lobe mass due to small cell. 2. Port on the right side. 3. Chronic kidney disease. 4. Type 2 diabetes. 5. Hypertension, stable. PLAN: the discharge in the morning she will go to the PET scan and follow up with Dr. Pineda on Friday. Unable to do MRI and will augment the pain control by adding hydrocodone at the time of discharge. LEVEL OF DOCUMENTATION: 25 minutes. cc: Jay Jay Garcia MD
--- NOTE | 2018-11-13 06:37 | Diag Imaging Result Doc PS360 ---
CHEST-1 VIEW - 11/13/2018 INDICATION: SOB COMPARISON: 11/12/2018 FINDINGS: Stable right chest port in good position. Stable hazy increased markings in the lung bases which may represent mild pulmonary edema or bronchitis. Stable rounded opacity in the left lung base. Heart size remains normal. IMPRESSION: No change from prior. Electronically signed by Avi Rosales 11/13/2018 6:34 AM
[2018-11-13] MEDS: HUMULIN R SUBQ SCH (06:42)
[2018-11-13 08:10] VITALS: BP 124/58
[2018-11-13] MEDS: LYRICA PO SCH (09:06)
[2018-11-13] MEDS: ZYRTEC-D 12HR PO SCH (09:06)
[2018-11-13] MEDS: PEPCID IV SCH (09:06)
[2018-11-13] MEDS: MIRALAX PO SCH (09:06)
[2018-11-13] MEDS: LOVENOX SUBQ SCH (09:06)
[2018-11-13] MEDS: ASPIRIN PO SCH (09:06)
[2018-11-13] MEDS: THERA M PLUS PO SCH (09:07)
[2018-11-13] MEDS: PATIENT'S OWN MED PO SCH (09:08)
[2018-11-13] MEDS ORDERED: NORCO-10 PO ONE (09:37)
--- NOTE | 2018-11-13 13:06 | GENERAL SURGERY PROGRESS NOTE ---
DATE: 11/11/2018 SUBJECTIVE: The patient seems to be doing okay. OBJECTIVE: Vital signs: The patient is currently afebrile. Her vital signs are stable. General exam: No acute distress. HEENT: Normocephalic, atraumatic. Pupils equal, round, reactive to light. Mucous membranes moist. Oropharynx benign. Neck supple. Trachea midline. Cardiovascular: Regular rhythm. Lungs: Grossly clear. Abdomen soft, nontender, nondistended. Extremities: Moves all extremities. Neurologic: Grossly intact. Skin: No signs of jaundice. Vascular: All extremities perfused. LABORATORY: None this morning. ASSESSMENT AND PLAN: An 83-year-old female with left side lung mass. Left side lung mass. At this time will plan on placement of a port tomorrow. She has been made n.p.o., achieved consent. The risks, benefits, alternatives have discussed. She is aware. Will proceed with the surgery tomorrow. cc: MD Jay Jay Rodriguez MD
--- NOTE | 2018-11-15 08:02 | DISCHARGE SUMMARY ---
ADMISSION DATE: 11/02/2018 DISCHARGE DATE: 11/13/2018 DISCHARGING DIAGNOSIS: Altered mental status due to metabolic encephalopathy due to left lower lobe pneumonia associated with left lower lobe mass. SECONDARY DIAGNOSES: 1. Left lower lobe mass due to small-cell lung cancer. Staging is pending. 2. Chronic kidney disease stage 3. Creatinine 1.9. 3. Type 2 diabetes. 4. Hyperlipidemia. 5. Hypertension. 6. Chronic back pain due to spinal stenosis. 7. Chronic tobacco abuse. 8. Chronic obstructive pulmonary disease. 9. Chronic anxiety. 10. History of peripheral arterial disease in both legs. CONSULTATIONS: 1. Dr. Pineda. 2. Dr. Narvaez. 3. Dr. Alves. PROCEDURES: 1. CT-guided biopsy of left lower lobe mass, complicated by 10% pneumothorax. 2. Port-A-Cath on the right side. BRIEF HISTORY: Please see the H and P that was done on 11/02/2018. In brief, she is an 84-year- old white female with the above problems, who came in my office with abdominal pain, fever, nausea, vomiting, frequent falls, confusion. HOSPITAL COURSE: Chest x-ray showed left lower lobe infiltrate. Blood cultures 1/2 positive for diphtheroids. The patient was given IV antibiotics with Levaquin, and further workup revealed that the CT of the chest showed left lower lobe mass with superimposed infiltrate. CT of the chest biopsy done showed small-cell lung cancer. Dr. Alves was consulted, and the results were discussed. CT head did not show any lesions. Dr. Pineda was consulted. He is arranging outpatient PET scan. Rest of the hospital course was uneventful. LABORATORY DATA: CBC: White cell count 5.6, hematocrit 43, platelets 119,000. Sodium 136, potassium 4.8, BUN 32, creatinine 1.6, glucose 245. CEA levels were high at 6.5. One blood culture is positive for diphtheroids. Urine cultures were negative. DISCHARGE INSTRUCTIONS: The patient was discharged with the following instructions. Lovastatin 40 mg daily, fish oil 500 daily, multivitamin 1 tablet daily, lisinopril 20 daily, glipizide 10 daily, Klonopin 1 mg at bedtime, Lyrica 50 daily, tramadol 50 t.i.d. as needed, nicotine patch as directed, Robaxin 750 every 8 hours as needed, and [place] prescription was given for pain. Follow up with a PET scan and Dr. Pineda for further treatment. Results were discussed with the family, as well as plan of care. cc: MD Krishan Steinberg MD Matthew L. Figh, MD Naveen T. Lobo, MD
== END 2018-11-13 12:51 | disposition home or self-care (01) | DRG 843 ==
LOC: 3N 21:30
PROVIDERS: ADMIT Internal Medicine; ATTEND Internal Medicine
CPT/HCPCS: 32405; 70450; 71010; 71020; 71045; 71046; 71250; 74150; 76000; 77012; 80048; 80053; 82150; 82378; 82565; 82805; 82948; 84520; 85025; 85610; 87040; 87088; 88305; A9270; C1788; J1650; J1956; J2060; J2370; J2405; J7030; J7050; S0020; S0028; XXXXX